=== PATIENT | male | born 1980 | race African-American/Black ===

== ENCOUNTER 2024-11-16 22:09 | Observation (INO) | payer BC ==
[2024-11-16] MEDS ORDERED: morphine SULFATE 4 MG/ML VIAL ONE (22:50)
[2024-11-16] MEDS: morphine CARPU-JECT 4 MG/1 ML DISP.SYRIN IVPUSH ONE (22:57)
[2024-11-16] MEDS: ONDANSETRON 4 MG/2 ML VIAL IVPUSH ONE (22:58)
[2024-11-16] MEDS: SODIUM CHLORIDE 1,000 ML IV STA (22:58)
[2024-11-16] MEDS ORDERED: ONDANSETRON 4 MG/2 ML VIAL ONE (22:59)
[2024-11-17 00:19] LABS: HEMATOCRIT 16.7 % (35.4-49); MCH 24.2 pg (25.7-33.7); MCHC 30.7 g/dl (32.0-35.9); MEAN CELL VOLUME 78.8 fl (80-96); MEAN PLT VOLUME 6.6 fl (7.5-11.1); PLATELET COUNT 183 10^3/uL (134-434); RBC 2.11 M/mm3 (4.00-5.60); RDW 17.7 % (11.9-15.9); WHITE BLOOD COUNT 2.5 K/mm3 (4.0-10.0)
[2024-11-17 00:23] LABS: HEMOGLOBIN 5.1 GM/dL (11.7-16.9)
[2024-11-17 00:32] LABS: CHLORIDE 140 mmol/L (98-107); SODIUM 155 mmol/L (136-145)
[2024-11-17 00:35] LABS: ALBUMIN 0.9 g/dl (3.4-5.0); CO2 7 mmol/L (21-32)
[2024-11-17 00:38] LABS: SGOT/AST 9 U/L (15-37); SGPT/ALT 9 U/L (13-61)
[2024-11-17 00:40] LABS: BILIRUBIN,TOTAL 0.1 mg/dL (0.2-1); LDH 49 U/L (87-246); TOT PROT 1.8 g/dl (6.4-8.2)
[2024-11-17 00:53] LABS: ALK PHOS 24 U/L (45-117)
[2024-11-17 00:54] LABS: MAGNESIUM 0.4 mg/dL (1.8-2.4)
[2024-11-17 01:20] LABS: BASO % 0.5 % (0-2.0); HEMATOCRIT 44.9 % (35.4-49); HEMOGLOBIN 14.5 GM/dL (11.7-16.9); LYMPH % 10.5 % (8-40); MCH 24.3 pg (25.7-33.7); MCHC 32.2 g/dl (32.0-35.9); MEAN CELL VOLUME 75.5 fl (80-96); MEAN PLT VOLUME 7.2 fl (7.5-11.1); MONO % 2.5 % (3.8-10.2); NEUT % 86.5 % (42.8-82.8); PLATELET COUNT 539 10^3/uL (134-434); RBC 5.95 M/mm3 (4.00-5.60)
[2024-11-17 01:23] LABS: ANION GAP 8 mmol/L (4-13); GLUCOSE,RANDOM 41 mg/dL (74-106); POTASSIUM 1.1 mmol/L (3.5-5.1)
[2024-11-17 01:30] LABS: HIV INTERPRETATION NEGATIVE (NEGATIVE)
[2024-11-17] MEDS ORDERED: ONDANSETRON 4 MG/2 ML VIAL ONE (01:43)
[2024-11-17] MEDS ORDERED: ACETAMINOPHEN INJECTION 100 ML ONE (01:43)
[2024-11-17] MEDS: ACETAMINOPHEN 1000 MG/100 ML BAG IVPB ONE (01:48)
[2024-11-17 01:54] LABS: POTASSIUM 3.8 mmol/L (3.5-5.1)
[2024-11-17 01:57] LABS: CALCIUM 9.9 mg/dL (8.5-10.1)
[2024-11-17 02:00] LABS: CREATININE 0.8 mg/dL (0.55-1.3)
[2024-11-17 02:02] LABS: BILIRUBIN,TOTAL 0.7 mg/dL (0.2-1)
[2024-11-17 02:08] LABS: ALBUMIN 4.3 g/dl (3.4-5.0); TOT PROT 8.8 g/dl (6.4-8.2)
[2024-11-17] MEDS ORDERED: KETOROLAC TROMETHAMINE 15 MG/ML VIAL ONE (03:57)
[2024-11-17] MEDS ORDERED: morphine SULFATE 4 MG/ML VIAL ONE (04:08)
[2024-11-17] MEDS ORDERED: FAMOTIDINE 20 MG/50 ML IVPB 20 MG/50 ML MG IVPB ONE (04:09)
[2024-11-17] MEDS: KETOROLAC TROMETHAMINE 15 MG/ML VIAL IVPUSH ONE (04:22)
[2024-11-17] MEDS: SODIUM CHLORIDE 1,000 ML IV STA (04:22)
[2024-11-17] MEDS: FAMOTIDINE 20 MG/50 ML IVPB 20 MG/50 ML MG IVPB ONE (04:23)
[2024-11-17] MEDS ORDERED: ACETAMINOPHEN 1000 MG/100 ML BAG IVPB SCH (05:30)
[2024-11-17 06:31] LABS: LACTIC ACID 2.2 mmol/L (0.4-2.0)
[2024-11-17 06:36] VITALS: TEMP 98.5
[2024-11-17] MEDS: ACETAMINOPHEN 1000 MG/100 ML BAG IVPB PRN (07:42)
[2024-11-17] MEDS: SODIUM CHLORIDE 1,000 ML IV SCH (07:43)
[2024-11-17] MEDS: ONDANSETRON 4 MG/2 ML VIAL IVPUSH PRN (07:43)
[2024-11-17] MEDS: LIPASE/PROTEASE/AMYLASE 36,000 UNIT CAPSULE PO SCH (08:03)
[2024-11-17 08:51] VITALS: BP 154/88; PULSE 94; RESP 18; BMI 21.9
[2024-11-17] MEDS: PANTOPRAZOLE SODIUM 40 MG VIAL IVPUSH SCH (09:02)
[2024-11-17 09:13] LABS: BASO % 0.3 % (0-2.0); HEMOGLOBIN 13.4 GM/dL (11.7-16.9); LYMPH % 12.2 % (8-40); MCH 24.6 pg (25.7-33.7); MCHC 32.6 g/dl (32.0-35.9); MEAN CELL VOLUME 75.4 fl (80-96); MEAN PLT VOLUME 7.2 fl (7.5-11.1); MONO % 5.8 % (3.8-10.2); NEUT % 81.7 % (42.8-82.8); PLATELET COUNT 510 10^3/uL (134-434); RBC 5.44 M/mm3 (4.00-5.60); RDW 17.3 % (11.9-15.9); WHITE BLOOD COUNT 8.1 K/mm3 (4.0-10.0)
[2024-11-17 09:32] LABS: POTASSIUM 3.5 mmol/L (3.5-5.1)
[2024-11-17 09:42] LABS: CREATININE 0.8 mg/dL (0.55-1.3)
[2024-11-17 09:43] LABS: ALBUMIN 3.8 g/dl (3.4-5.0); BILIRUBIN,TOTAL 0.7 mg/dL (0.2-1); BLOOD UREA NITROGEN 11.2 mg/dL (7-18); CALCIUM 9.4 mg/dL (8.5-10.1); PHOSPHOROUS 3.4 mg/dL (2.5-4.9)
[2024-11-17 09:44] LABS: TOT PROT 7.8 g/dl (6.4-8.2)
== END 2024-11-17 16:00 | disposition home or self-care (01) ==
LOC: JER 22:09 → JERBED 11-17 05:28 → J6S 11-17 06:49
PROVIDERS: ADMIT Internal Medicine; ATTEND Internal Medicine
PROC: 3E033GC Introduction of Other Therapeutic Substance into Peripheral Vein, Percutaneous Approach (ICD-10-PCS; principal; 2024-11-17)
PROC: 3E033NZ Introduction of Analgesics, Hypnotics, Sedatives into Peripheral Vein, Percutaneous Approach (ICD-10-PCS; 2024-11-17)
PROC: 3E0333Z Introduction of Anti-inflammatory into Peripheral Vein, Percutaneous Approach (ICD-10-PCS; 2024-11-17)
PROC: 3E033GC Introduction of Other Therapeutic Substance into Peripheral Vein, Percutaneous Approach (ICD-10-PCS; 2024-11-17)
PROC: 3E0337Z Introduction of Electrolytic and Water Balance Substance into Peripheral Vein, Percutaneous Approach (ICD-10-PCS; 2024-11-17)
DX: R10.13 Epigastric pain (principal); R11.0 Nausea; F12.90 Cannabis use, unspecified, uncomplicated; I10 Essential (primary) hypertension; E11.9 Type 2 diabetes mellitus without complications; K86.1 Other chronic pancreatitis; Z98.84 Bariatric surgery status; Z90.49 Acquired absence of other specified parts of digestive tract; F17.200 Nicotine dependence, unspecified, uncomplicated
CPT/HCPCS: 0241U-QW; 36415; 74177-TC; 80053; 83036; 83605; 83615; 83690; 83735; 84100; 84478; 84484; 85025; 86803; 86850; 86900; 86901; 87389; 93005; 93010; 99285-25; G0378; J0131; Q9967